=== PATIENT | female | born 1980 | race Caucasian/White ===

== ENCOUNTER → 2016-09-03 | Outpatient (CLI) | payer OTHER ==
[2016-01-12 10:16] VITALS: BP 120/55
[~2016-09-03] MED LIST: IBUP-1060 PO; LEVO175T2 PO; METO25TA2 PO; OXYC-244 PO; OXYC-250 PO
--- NOTE | 2016-09-03 10:30 | KCIC ---
PROCEDURE Pelvic sonogram. HISTORY Pain. Right oophorectomy. TECHNIQUE Trans abdominal sonographic imaging of the pelvis was performed. COMPARISON 09/18/2013 FINDINGS The uterus measures 12.0 x 8.2 x 6.0 cm. The endometrial stripe measures 10 mm in thickness. The left ovary measures 4.2 x 3.1 x 4.6 cm and demonstrates normal blood flow. There are multiple left ovarian follicles with a dominant follicular cyst measuring 1.8 cm. The right ovary is surgically absent. There is no pelvic free fluid. IMPRESSION 1. Multiple left ovarian follicles with a dominant follicular cyst measuring 1.8 cm. 2. Endometrial thickness within normal limits at 10 mm. 3. Prominent uterine size. No fibroid is seen. Electronically signed by: Vera Figueroa (Sep 03, 2016 10:29:24)
== END | disposition home or self-care (01) ==
LOC: KCIC US 07:56
PROVIDERS: ATTEND Obstetrics & Gynecology
DX: N83.02 Follicular cyst of left ovary (principal); Z90.721 Acquired absence of ovaries, unilateral
CPT/HCPCS: 76856

== ENCOUNTER 2019-09-17 07:13 | Day surgery (SDC) | payer BC, MEDICAID ==
[~2019-09-17] VITALS: Ht 171.4 cm; Wt 173.0 kg
[~2019-09-17 07:13] MED LIST changes: +BIOT25006 PO; +BUSP5TAB PO; +ESCITALOPRAM OX10 MG PO; +FLUT9.9S NS; +HYDROmorphone 2 MG/ML VIAL IV PRN; +IV RINGERS,LACTATED 1000ML 1,000 ML IV SCH; +LEVO100T5 PO; +MULT1CAP33 PO; -OXYC-244 PO; -OXYC-250 PO; +OXYC-325 PO; +OXYC1TAB19 PO; +OXYC1TAB22 PO; +PROCHLORPERAZINE 10 MG/2 ML VIAL. IV PRN; +ceFAZolin SODIUM 3 GM in IV DEXTROSE 5% 100ML 100 ML IV PRN; +fentaNYL PF VIAL 100 MCG/2 ML VIAL IV PRN
[2019-09-17] MEDS ORDERED: ESCITALOPRAM OX10 MG PO (07:47)
[2019-09-17] MEDS ORDERED: SURGICEL HEMOSTAT 4X8 EACH. ONE (07:49)
[2019-09-17] MEDS ORDERED: BUPIVACAINE-EPI 0.25%-1:200000 MPF 30 ML VIAL. ONE (07:49)
[2019-09-17] MEDS ORDERED: ENOXAPARIN 40 MG/0.4 ML SYRINGE. SQ ONE (08:00)
[2019-09-17] MEDS ORDERED: GLYCOPYRROLATE 1 MG/5 ML VIAL. ONE (08:48)
[2019-09-17] MEDS ORDERED: NEOSTIGMINE METHYLSULFATE 5 MG/5 ML SYRINGE. ONE (08:49)
[2019-09-17] MEDS ORDERED: KETOROLAC 30 MG/ML VIAL. ONE (09:15)
[2019-09-17] MEDS ORDERED: fentaNYL PF VIAL 100 MCG/2 ML VIAL ONE (09:32)
--- NOTE | 2019-09-17 09:33 | PDOC ---
BRIEF OPERATIVE NOTE Date: Sep 17, 2019 Pre-Op Diagnosis LUCA Cyst Post-Op Diagnosis [facility] Surgeon Dr. Dai Anesthesia Type: General Blood Loss 5 ml Specimens Obtained LUCA cyst wall Findings LUCA cyst 3 cm size, nml fallopian tubes patrice.; no evidence endometriosis Complications none Operative Note see dictation KHALIDA DAI Jr, MD Sep 17, 2019 09:32
--- NOTE | 2019-09-17 09:34 | DISCH ---
DISCHARGE INSTRUCTIONS Condition on Discharge Condition on Discharge: Stable Activity After Discharge Activity Instructions for Disc: Activity as tolerated Lifting Instructions after Dis: No heavy lifting Driving Instructions after Dis: Do not drive today Diet after Discharge Diet after Discharge: Regular Contacting the DRJake after DC Call your doctor for: Concerns you may have Follow-Up Follow up with: Dr. Mcpherson in 1 week KHALIDA MCPHERSON Jr, MD Sep 17, 2019 09:34
[2019-09-17] MEDS ORDERED: OXYC-325 PO (09:43)
--- NOTE | 2019-09-17 09:53 | OP ---
DATE OF SURGERY: PREOPERATIVE DIAGNOSIS: Left ovarian cyst. POSTOPERATIVE DIAGNOSIS: Left ovarian cyst. PROCEDURE: Laparoscopic left ovarian cystectomy. SURGEON: Khalida Dai MD ANESTHESIA: GETA. ESTIMATED BLOOD LOSS: 5 mL. COMPLICATIONS: None. FINDINGS: Left ovarian cyst about 3 cm size. Normal fallopian tubes bilaterally. No evidence of endometriosis. SUMMARY: This is a 38-year-old female with chronic pelvic pain and unresolving left ovarian cyst. She was counseled on risks, benefits and expectations and voiced clear understanding to proceed. DESCRIPTION OF PROCEDURE: The patient was taken to surgery suite and placed in dorsal lithotomy position. She was prepped with Betadine solution for vaginal prep and ChloraPrep for abdominal prep. After adequate anesthesia, bivalve speculum was placed vaginally. Anterior lip of the cervix grasped with a single-tooth tenaculum. Uterine acorn manipulator was then placed. The bivalve speculum was removed. Attention was now placed on abdomen. Initially, we attempted with an incision just below the umbilicus with a Veress needle to insufflate the abdomen. We attempted with a 5 mm trocar, we were unsuccessful; therefore, we made incisions in the left upper quadrant with a scalpel and a 5 mm trocar was placed. We were able to place the scope and then additional incisions were in the right lower quadrant as well as another one in the left lower quadrant in which a 5 mm trocar was placed in the right lower quadrant and 8 mm trocar placed in the left lower quadrant. With aid of Agus and Endo Christopher, the left ovarian cyst was isolated and incised. The cyst wall was removed. Both areas of the left ovarian cyst and the remaining cyst wall capsule were fulgurated with cautery. The area was hemostatic. Suction irrigation was utilized to verify good hemostasis. There was no evidence of endometriosis. A few abdominal wall adhesions were visualized and removed as well with aid of Endo Christopher and blunt dissection. The trocars were then removed under direct visualization with a pay close attention and did not cause any injury to the abdominal wall mesh that was there. All trocar sites were outside of the abdominal wall mesh area. All trocars were removed under direct visualization. The abdomen was allowed to deflate as much as possible along with mechanical manipulation. The four skin incisions were reapproximated using 4-0 Vicryl suture in a subcuticular manner. A 0.25% Marcaine with epinephrine was injected at each incision site. Uterine acorn manipulator and a single-tooth tenaculum were removed. The patient tolerated the procedure well and was taken to recovery room in stable condition. Sponge and needle count correct x 3. KHALIDA DAI MD DR: VIRGILIO/tayo JOB#: [id number] / [id number]
[2019-09-17] MEDS: MORPHINE SULFATE 2 MG/ML VIAL. IV PRN ×2 (09:57→10:17)
[2019-09-17] MEDS ORDERED: oxyCODONE/APAP 5/325 1 TAB TABLET ONE (10:10)
[2019-09-17] MEDS ORDERED: oxyCODONE/APAP 5/325 1 TAB TABLET PO ONE (10:30)
[2019-09-17 10:45] VITALS: BP 108/68
--- NOTE | 2019-09-21 18:06 | PATHOLOGY ---
[facility] Accession Number: [id number] . 01 Material submitted: . ovary - LEFT OVARIAN CYST WALL. Modifiers: left, wall . 01 Clinical history: . None provided . 02 Diagnosis: Segments of ovarian tissue, laparoscopic left ovarian cystectomy: - Follicular cyst. . ([facility]:mm; 09/18/2019) [facility] 09/21/2019 1705 Local . 02 Comment: There is no evidence of endometriosis or malignancy. . ([facility]:mm; 09/18/2019) . 02 Electronically signed: . Shimon Silverio MD, Pathologist NPI- [id number] . 01 Gross description: . The specimen is received in formalin, labeled "Eve Payton, left ovarian cyst wall". Received are multiple segments of pale sorenson fibromembranous tissue measuring 1.5 x 1.4 x 0.5 cm in aggregate dimensions. The specimen is submitted entirely in cassette A1. ([facility]; 09/17/2019) QA/[facility] 09/17/2019 1814 Local . 02 Pathologist provided ICD-10: N83.02 . 02 CPT . 387235 Specimen Comment: A courtesy copy of this report has been sent to [phone] Specimen Comment: Report sent to Performed at: 01 [facility] [address] [address], [place] [id number] MD Yves Kelley MD Phone: [phone] Performed at: 02 [facility] [address] [place], [place] [id number] MD Shimon Silverio MD Phone: [phone]
== END 2019-09-17 11:10 | disposition home or self-care (01) ==
LOC: SURG 07:13 → EEVIPCON 08:30 → SURG 11:10
PROVIDERS: ATTEND Obstetrics & Gynecology
DX: N83.02 Follicular cyst of left ovary (principal); I10 Essential (primary) hypertension; E03.9 Hypothyroidism, unspecified; A63.0 Anogenital (venereal) warts; Z90.49 Acquired absence of other specified parts of digestive tract; Z88.1 Allergy status to other antibiotic agents; Z98.890 Other specified postprocedural states; Z98.84 Bariatric surgery status; Z98.51 Tubal ligation status; Z79.2 Long term (current) use of antibiotics; Z79.899 Other long term (current) drug therapy; Z88.8 Allergy status to other drugs, medicaments and biological substances
CPT/HCPCS: 58662; 81025; A7015; J0780; J1885; J2270; J2710; J3010; J3490; J7030; J7120

== ENCOUNTER 2019-11-03 07:34 | Emergency (ER) | payer BC, MEDICAID ==
[~2019-11-03] VITALS: Ht 172.7 cm; Wt 168.6 kg
[~2019-11-03 07:34] MED LIST changes: +HYDR-3164 PO; -HYDROmorphone 2 MG/ML VIAL IV PRN; -IV RINGERS,LACTATED 1000ML 1,000 ML IV SCH; +ONDA4TAB12 PO; -PROCHLORPERAZINE 10 MG/2 ML VIAL. IV PRN; -ceFAZolin SODIUM 3 GM in IV DEXTROSE 5% 100ML 100 ML IV PRN; -fentaNYL PF VIAL 100 MCG/2 ML VIAL IV PRN
[2019-11-03 07:44] VITALS: BP 166/66
[2019-11-03] MEDS ORDERED: ORPHENADRINE CITRATE 60 MG/2 ML VIAL. IM ONE (08:00)
[2019-11-03] MEDS ORDERED: KETOROLAC 60 MG/2 ML VIAL. IM ONE (08:00)
--- NOTE | 2019-11-03 08:04 | PHYS DOC ---
Past Medical History Past Medical History: Hypothyroid Past Surgical History: Cholecystectomy, Gastric Bypass Additional Past Surgical Histo: cyst removed from l. ovary Smoking Status: Never Smoker Alcohol Use: None Adult General Chief Complaint Chief Complaint: BACK PAIN - NO INJURY HPI HPI Patient is a 39 year old female presenting to the ED with a chief complaint of lower thoracic paraspinal tenderness on the right. Patient states that it woke her up from her sleep this morning. Patient denies any obvious injuries. Patient denies pain radiating down to her buttocks. Patient denies hematuria, dysuria, urinary frequency. Patient states that the pain is worse with movement. Review of Systems Review of Systems Patient denies fever, chills, nausea, vomiting, diarrhea, dysuria, chest pain, shortness of breath. Patient does complain of right lower thoracic paraspinal tenderness. All other systems were reviewed and found to be within normal limits, except as documented in this note. Current Medications Current Medications Current Medications Medications (Trade) Dose Ordered Sig/Jolanta Start Time Stop Time Status Last Admin Dose Admin Ketorolac Tromethamine (Toradol Im) 60 mg 1X ONCE 11/03/19 08:00 11/03/19 08:01 DC 11/03/19 08:09 60 MG Orphenadrine Citrate (Norflex) 60 mg 1X ONCE 11/03/19 08:00 11/03/19 08:01 DC 11/03/19 08:08 60 MG Allergies Allergies Allergies Coded Allergies Type Severity Reaction Last Updated Verified clarithromycin Allergy Intermediate Rash 09/17/19 Yes Physical Exam Physical Exam Constitutional: Well developed, well nourished, no acute distress, non-toxic appearance. [] HENT: Normocephalic, atraumatic Eyes: PERRLA, EOMI, conjunctiva normal, no discharge. [] Neck: Normal range of motion, no tenderness, supple, no stridor. [] Lungs & Thorax: No respiratory distress Abdomen: Bowel sounds normal, soft, no tenderness Back: Lower thoracic paraspinal tenderness on the right Extremities: No tenderness, no cyanosis, no clubbing, ROM intact, no edema. [] Neurologic: Alert and oriented X 3 Current Patient Data Vital Signs Vital Signs Date Time Temp Pulse Resp B/P (MAP) Pulse Ox O2 Delivery O2 Flow Rate FiO2 11/03/19 07:44 97.6 75 20 166/66 (99) 97 Room Air 97.6 EKG EKG [] Radiology/Procedures Radiology/Procedures [] Course & Med Decision Making Course & Med Decision Making Patient has tenderness to the touch. There is no rash present. Patient does not have any symptoms dysuria, hematuria or urinary frequency. We will treat patient with Toradol 60 mg IM, Norflex 60 mg IM. Patient be discharged home for outpatient follow-up. Discussed plan of care with patient. Patient is instructed to follow up with PCP in one to 2 days. Appropriate discharge instructions given to patient to return to the ED or to seek immediate medical evaluation. Patient is instructed to return to the ED if symptoms worsen or if any concerns. Dragon Disclaimer Dragon Disclaimer This electronic medical record was generated, in whole or in part, using a voice recognition dictation system. Departure Departure Impression: Primary Impression: Strain of thoracic back region Disposition: 01 HOME, SELF-CARE Condition: IMPROVED Referrals: UNKNOWN PCP NAME (PCP) Patient Instructions: Back Pain, Adult, Thoracic Strain Scripts Hydrocodone/Apap 5-325 (NORCO 5-325 TABLET) 1 Each Tablet 1 EACH PO PRN Q6HRS PRN for PAIN, #10 as needed for pain Prov: AISSATOU RAPHAEL DO 11/03/19 Cyclobenzaprine Hcl (CYCLOBENZAPRINE HCL) 5 Mg Tablet 10 MG PO PRN TID PRN for PAIN for 5 Days, #15 TAB Prov: AISSATOU RAPHAEL DO 11/03/19 AISSATOU RAPHAEL DO Nov 03, 2019 08:03
[2019-11-03] MEDS ORDERED: HYDR-3164 PO (08:07)
[2019-11-03] MEDS ORDERED: CYCL5TAB PO (08:07)
== END 2019-11-03 08:31 | disposition home or self-care (01) ==
LOC: ER 07:34
DX: S29.012A Strain of muscle and tendon of back wall of thorax, initial encounter (principal); E03.9 Hypothyroidism, unspecified; Z90.49 Acquired absence of other specified parts of digestive tract; Z98.890 Other specified postprocedural states; Z88.1 Allergy status to other antibiotic agents; X58.XXXA Exposure to other specified factors, initial encounter; Y93.89 Activity, other specified; Y92.89 Other specified places as the place of occurrence of the external cause; Y99.8 Other external cause status
CPT/HCPCS: 96372; 99284; J1885; J2360

== ENCOUNTER 2020-06-01 21:18 | Emergency (ER) | payer BC, MEDICAID ==
[~2020-06-01] VITALS: Ht 167.6 cm; Wt 170.0 kg
[~2020-06-01 21:18] MED LIST changes: +CYCL5TAB PO
[2020-06-01 21:25] VITALS: BP 160/62
[2020-06-01 21:47] LABS: BILIRUBIN,URINE NEGATIVE (NEG); CLARITY,URINE CLEAR; COLOR,URINE YELLOW; NITRITE,URINE NEGATIVE (NEG); PROTEIN,URINE NEGATIVE (NEG-TRACE)
[2020-06-01 21:55] LABS: BACTERIA,URINE FEW /HPF (0-FEW); RBC,URINE 0 /HPF (0-2)
[2020-06-01] MEDS ORDERED: HYDR-3164 PO (22:20)
[2020-06-01] MEDS ORDERED: METH4TAB2 PO (22:20)
--- NOTE | 2020-06-01 22:22 | PHYS DOC ---
Past Medical History Past Medical History: Hypothyroid Past Surgical History: Cholecystectomy, Gastric Bypass Additional Past Surgical Histo: cyst removed from l. ovary, SPLEEN REMOVAL, HERNIA REPAIR Smoking Status: Never Smoker Alcohol Use: Occasionally General Adult EDM: Chief Complaint: BACK PAIN - NO INJURY HPI: HPI: Patient is a 39 year old female who presents with 2 days of midline cervical and thoracic spinal pain that is more painful with movement and moving her arms and lifting objects. She states it is more painful with walking also. She does not remember injuring or pulling a muscle in her back. She states that she took a tizanidine and it did not help. Patient states when she bends over to lift any objects or lift there 25 pound dog it was very painful. Patient states that at times she can feel the pain that is sharp and shooting down into her bilateral hands. She currently rates her pain 7 out of 10 with movement. P atient denies numbness or tingling, injury, loss of bowel or bladder, shortness of breath, chest pain, fever, headache, dizziness, neck stiffness, abdominal pain, nausea, vomiting, diarrhea or dysuria symptoms. Patient has a history of gastric bypass, cholecystectomy, spleen removal, hernia repair, hypothyroidism. Review of Systems: Review of Systems: Constitutional: Denies fever or chills. [] Eyes: Denies change in visual acuity. [] HENT: Denies nasal congestion or sore throat. [] Respiratory: Denies cough or shortness of breath. [] Cardiovascular: Denies chest pain or edema. [] GI: Denies abdominal pain, nausea, vomiting, bloody stools or diarrhea. [] : Denies dysuria. [] Musculoskeletal: + back pain or denies joint pain. [] Integument: Denies rash. [] Neurologic: Denies headache, focal weakness or sensory changes. +Sharp shooting nerve pains to bilateral arms and hands [] Endocrine: Denies polyuria or polydipsia. [] Lymphatic: Denies swollen glands. [] Psychiatric: Denies depression or anxiety. [] Heart Score: Risk Factors: Risk Factors: DM, Current or recent (<one month) smoker, HTN, HLP, family history of CAD, obesity. Risk Scores: Score 0 - 3: 2.5% MACE over next 6 weeks - Discharge Home Score 4 - 6: 20.3% MACE over next 6 weeks - Admit for Clinical Observation Score 7 - 10: 72.7% MACE over next 6 weeks - Early Invasive Strategies Allergies: Allergies: Allergies Coded Allergies Type Severity Reaction Last Updated Verified clarithromycin Allergy Intermediate Rash 09/17/19 Yes Physical Exam: PE: Constitutional: Well developed, well nourished, no acute distress, non-toxic appearance. [] HENT: Normocephalic, atraumatic, bilateral external ears normal, oropharynx moist, no oral exudates, nose normal. [] Eyes: PERRLA, EOMI, conjunctiva normal, no discharge. [] Neck: Normal range of motion, no tenderness, supple, no stridor. [] Cardiovascular:Heart rate regular rhythm, no murmur [] Lungs & Thorax: Bilateral breath sounds clear to auscultation [] Abdomen: Bowel sounds normal, soft, no tenderness, no masses, no pulsatile masses. [] Skin: Warm, dry, no erythema, no rash. [] Back: No tenderness, no CVA tenderness. [] Extremities: No tenderness, no cyanosis, no clubbing, ROM intact, no edema. [] Neurologic: Alert and oriented X 3, normal motor function, normal sensory function, no focal deficits noted. [] Psychologic: Affect normal, judgement normal, mood normal. [] Normal physical exam Current Patient Data: Labs: Laboratory Tests Test 06/01/20 21:30 06/01/20 21:54 Urine Collection Type Unknown Urine Color Yellow Urine Clarity Clear Urine pH 6.0 (<5.0-8.0) Urine Specific Norman 1.020 (1.000-1.030) Urine Protein Negative mg/dL (NEG-TRACE) Urine Glucose (UA) Negative mg/dL (NEG) Urine Ketones (Stick) Negative mg/dL (NEG) Urine Blood Negative (NEG) Urine Nitrite Negative (NEG) Urine Bilirubin Negative (NEG) Urine Urobilinogen Dipstick 1.0 mg/dL (0.2 mg/dL) Urine Leukocyte Esterase Negative (NEG) Urine RBC 0 /HPF (0-2) Urine WBC 1-4 /HPF (0-4) Urine Squamous Epithelial Cells Mod /LPF Urine Bacteria Few /HPF (0-FEW) Urine Mucus Mod /LPF POC Urine HCG, Qualitative Hcg negative (Negative) Vital Signs: Vital Signs Date Time Temp Pulse Resp B/P (MAP) Pulse Ox O2 Delivery O2 Flow Rate FiO2 06/01/20 21:25 97.7 88 17 160/62 (94) 99 Room Air 97.7 EKG: EKG: [] Radiology/Procedures: Radiology/Procedures: [] Impression: [facility] [address] [place] [address] IMAGING REPORT Signed PATIENT: KHADRA MCRAE ACCOUNT: [id number] : 1980 LOCATION: ER AGE: 39 SEX: F EXAM STATUS: REG ER ORD. PHYSICIAN: АЛЕКСАНДР WALSH APRN REASON: pain mostly around T-5 and T-7, no injury PROCEDURE: THORACIC SPINE 3V Exam: Cervical spine 5 views. Thoracic spine 3 views INDICATION: Pain around T5 and T7 TECHNIQUE: Frontal, lateral, odontoid and bilateral oblique views of the cervical spine. Frontal, lateral and swimmer's views of the thoracic spine Comparisons: None FINDINGS: Cervical spine: There is straightening of cervical spine which may be positional. Vertebral body heights are well-maintained. No significant osteophytic foraminal stenosis identified in the cervical spine. Minimal degenerative disc disease greatest at C4-C5. Visual is paraspinal soft tissues are unremarkable. Thoracic spine: Vertebral body heights and alignment are well-maintained. No significant spondylotic change in the thoracic spine. Visualized paraspinal soft tissues are unremarkable. IMPRESSION: 1. Minimal spondylotic change in cervical spine. 2. Unremarkable thoracic spine radiographs. Electronically signed by: Liza Bean MD (06/01/2020 10:43 PM) [facility] DICTATED and SIGNED BY: LIZA BEAN MD DATE: 06/01/20 9439 Course & Med Decision Making: Course & Med Decision Making Pertinent Labs and Imaging studies reviewed. (See chart for details) See HPI. Urinalysis shows no infection. is negative. There is no focal bony spinal tenderness with palpation. Pain is with movement. Skin pink warm and dry. There are no deformities seen or felt with palpation to the spine. Full range of motion of her neck. There is no bruising or abrasions to her back. No CVA tenderness. I discussed possibly switching her muscle relaxer to Norflex and patient states she will try this. I will give her a prescription for Norflex, hydrocodone, Medrol Dosepak. Patient is likely having nerve pain and has strained her muscle in her back. [] Mariel Disclaimer: Mariel Disclaimer: This electronic medical record was generated, in whole or in part, using a voice recognition dictation system. Departure Departure Impression: Primary Impression: Back pain Qualified Codes: M54.9 - Dorsalgia, unspecified Additional Impression: DJD (degenerative joint disease) of cervical spine Qualified Codes: M47.812 - Spondylosis without myelopathy or radiculopathy, cervical region Disposition: HOME SELF CARE/HOMELESS Condition: STABLE Referrals: NO PCP (PCP) Patient Instructions: Cervical Radiculopathy, [id number], Degenerative Disk Disease, Muscle Strain Additional Instructions: Follow up with primary care provider as soon as possible. Take medications as prescribed and with food. Try using a heating pad. Scripts Orphenadrine Citrate (ORPHENADRINE CITRATE) 100 Mg Tablet.er 1 TAB PO BID, #14 TAB Prov: АЛЕКСАНДР WALSH APRN 06/01/20 Hydrocodone/Apap 5-325 (NORCO 5-325 TABLET) 1 Each Tablet 1 TAB PO PRN Q6HRS PRN for PAIN, #10 TAB 0 Refills Prov: АЛЕКСАНДР WALSH APRN 06/01/20 Methylprednisolone (MEDROL) 4 Mg Tab.ds.pk 1 PKG PO UD, #1 PKG Prov: АЛЕКСАНДР WALSH APRN 06/01/20 АЛЕКСАНДР WALSH APRN Jun 01, 2020 22:22
--- NOTE | 2020-06-01 22:46 | RAD ---
Exam: Cervical spine 5 views. Thoracic spine 3 views INDICATION: Pain around T5 and T7 TECHNIQUE: Frontal, lateral, odontoid and bilateral oblique views of the cervical spine. Frontal, lateral and swimmer's views of the thoracic spine Comparisons: None FINDINGS: Cervical spine: There is straightening of cervical spine which may be positional. Vertebral body heights are well-maintained. No significant osteophytic foraminal stenosis identified in the cervical spine. Minimal degenerative disc disease greatest at C4-C5. Visual is paraspinal soft tissues are unremarkable. Thoracic spine: Vertebral body heights and alignment are well-maintained. No significant spondylotic change in the thoracic spine. Visualized paraspinal soft tissues are unremarkable. IMPRESSION: 1. Minimal spondylotic change in cervical spine. 2. Unremarkable thoracic spine radiographs. Electronically signed by: Liza Hair MD (06/01/2020 10:43 PM) [facility]
[2020-06-01] MEDS ORDERED: ORPH100T PO (22:50)
== END 2020-06-01 23:00 | disposition home or self-care (01) ==
LOC: ER 21:18
DX: M54.6 Pain in thoracic spine (principal); M47.812 Spondylosis without myelopathy or radiculopathy, cervical region; M79.601 Pain in right arm; M79.602 Pain in left arm; E03.9 Hypothyroidism, unspecified; Z90.49 Acquired absence of other specified parts of digestive tract; Z98.890 Other specified postprocedural states; Z88.1 Allergy status to other antibiotic agents
CPT/HCPCS: 72050; 72072; 81001; 81025; 99284

== ENCOUNTER 2020-10-01 20:25 | Emergency (ER) | payer BC, MEDICAID ==
[~2020-10-01] VITALS: Ht 170.2 cm; Wt 176.0 kg
[~2020-10-01 20:25] MED LIST changes: +METH4TAB2 PO; +ORPH100T PO
[2020-10-01 20:57] LABS: U PREG PATIENT NEGATIVE (NEG)
[2020-10-01 21:53] LABS: BASO % 0 % (0-3); EOS # 0.3 x10^3/uL (0.0-0.7); EOS % 3 % (0-3); HEMATOCRIT 36.4 % (36.0-47.0); LYMPH # 3.3 x10^3/uL (1.0-4.8); LYMPH % 35 % (24-48); MEAN CORPUSCULAR HEMOGLOBIN 28 pg (25-35); MEAN CORPUSCULAR HGB CONC 33 g/dL (31-37); MEAN CORPUSCULAR VOLUME 86 fL (79-100); MONO # 0.7 x10^3/uL (0.0-1.1); MONO % 8 % (0-9); NEUT # 5.2 x10^3/uL (1.8-7.7); NEUT % 54 % (31-73); PLATELET COUNT 213 x10^3/uL (140-400); RED BLOOD COUNT 4.25 x10^6/uL (3.50-5.40); RED CELL DISTRIBUTION WIDTH 14.4 % (11.5-14.5); WHITE BLOOD COUNT 9.6 x10^3/uL (4.0-11.0)
[2020-10-01 22:04] LABS: CLARITY,URINE BLOODY; COLOR,URINE RED
[2020-10-01 22:05] LABS: RBC,URINE TNTC /HPF (0-2)
[2020-10-01 22:07] LABS: BACTERIA,URINE 0 /HPF (0-FEW)
[2020-10-01] MEDS ORDERED: IV NORMAL SALINE 1000ML BAG 1,000 ML IV ONE (23:30)
--- NOTE | 2020-10-01 23:56 | ED.ADGEN ---
Past Medical History Past Medical History: Hypothyroid Past Surgical History: Cholecystectomy, Gastric Bypass Additional Past Surgical Histo: cyst removed from l. ovary, SPLEEN REMOVAL, HERNIA REPAIR Smoking Status: Never Smoker Alcohol Use: Occasionally General Adult EDM: Chief Complaint: VAGINAL BLEEDING HPI: HPI: Patient is a 39 year old female who presents emergency department with complain ts of heavy vaginal bleeding. Patient reports that her last menstrual cycle was on September 05, 2019. She began to have heavy vaginal bleeding today at approximately 1500. Patient states she also has some lower abdominal cramping. She denies any irregular vaginal discharge or odor prior to the onset of the bleeding. Patient states that her menstrual cycle at the beginning of September was also heavier than normal. Patient reports that she has saturated more than 3 pads and a super tampon since the onset of the bleeding. Patient reports that she feels a little lightheaded but denies any syncope or dizziness. She denies any recent fever, cough, headache, chest pain, shortness of breath, nausea, vomiting, diarrhea, dysuria, or hematuria. She currently complains of lower abdominal cramping that she rates a 7 out of 10 on pain scale. She denies any alleviating or exacerbating factors. Patient states that her only medical problems are hypothyroidism and obesity. She reports previous surgical history of a gastric bypass, right oophorectomy, hernia repair, cholecystectomy, tonsillectomy, adenectomy, and splenectomy. Review of Systems: Review of Systems: Complete ROS is negative unless otherwise noted in HPI. Current Medications: Current Medications Medications (Trade) Dose Ordered Sig/Jolanta Start Time Stop Time Status Last Admin Dose Admin Sodium Chloride 1,000 ml @ 1,000 mls/hr 1X ONCE 10/01/20 23:30 10/02/20 00:29 10/01/20 23:22 1,000 MLS/HR Allergies: Allergies: Allergies Coded Allergies Type Severity Reaction Last Updated Verified clarithromycin Allergy Intermediate Rash 09/17/19 Yes Physical Exam: PE: Constitutional: Well developed, well nourished, no acute distress, non-toxic appearance, morbidly obese. HENT: Normocephalic, atraumatic, bilateral external ears normal, nose normal. Eyes: PERRLA, EOMI, conjunctiva normal, no discharge. Neck: Normal range of motion, no stridor. Cardiovascular: Heart rate regular rhythm Lungs & Thorax: Respirations even and unlabored, no retractions, no respiratory distress Pelvic Exam: [employer] Sales Manager present Elisa PRIEST Abdomen: Nontender, soft External Genitalia: Normal Skin Speculum: Normal vaginal mucosa, bloody cervical discharge Bimanual: No adnexal masses or tenderness, No CMT Skin: Warm, dry, no erythema, no rash. Extremities: No cyanosis, ROM intact, no edema. Neurologic: Alert and oriented X 3, no focal deficits noted. Psychologic: Affect normal, judgement normal, mood normal. Current Patient Data: Labs: Laboratory Tests Test 10/01/20 20:40 10/01/20 21:35 Urine Collection Type Unknown Urine Color Red Urine Clarity Bloody Urine pH (<5.0-8.0) Urine Specific [place] (1.000-1.030) Urine Protein mg/dL (NEG-TRACE) Urine Glucose (UA) mg/dL (NEG) Urine Ketones (Stick) mg/dL (NEG) Urine Blood (NEG) Urine Nitrite (NEG) Urine Bilirubin (NEG) Urine Urobilinogen Dipstick mg/dL (0.2 mg/dL) Urine Leukocyte Esterase (NEG) Urine RBC Tntc /HPF (0-2) Urine WBC 1-4 /HPF (0-4) Urine Squamous Epithelial Cells Few /LPF Urine Bacteria 0 /HPF (0-FEW) Urine Mucus Mod /LPF Urine Test Negative (NEG) White Blood Count 9.6 x10^3/uL (4.0-11.0) Red Blood Count 4.25 x10^6/uL (3.50-5.40) Hemoglobin 12.0 g/dL (12.0-15.5) Hematocrit 36.4 % (36.0-47.0) Mean Corpuscular Volume 86 fL (79-100) Mean Corpuscular Hemoglobin 28 pg (25-35) Mean Corpuscular Hemoglobin Concent 33 g/dL (31-37) Red Cell Distribution Width 14.4 % (11.5-14.5) Platelet Count 213 x10^3/uL (140-400) Neutrophils (%) (Auto) 54 % (31-73) Lymphocytes (%) (Auto) 35 % (24-48) Monocytes (%) (Auto) 8 % (0-9) Eosinophils (%) (Auto) 3 % (0-3) Basophils (%) (Auto) 0 % (0-3) Neutrophils # (Auto) 5.2 x10^3/uL (1.8-7.7) Lymphocytes # (Auto) 3.3 x10^3/uL (1.0-4.8) Monocytes # (Auto) 0.7 x10^3/uL (0.0-1.1) Eosinophils # (Auto) 0.3 x10^3/uL (0.0-0.7) Basophils # (Auto) 0.0 x10^3/uL (0.0-0.2) Laboratory Tests 10/01/20 21:35 Vital Signs: Vital Signs Date Time Temp Pulse Resp B/P (MAP) Pulse Ox O2 Delivery O2 Flow Rate FiO2 10/01/20 20:30 97.2 96 13 154/67 (96) 100 Room Air 97.2 EKG: EKG: [] Heart Score: Risk Factors: Risk Factors: DM, Current or recent (<one month) smoker, HTN, HLP, family history of CAD, obesity. Risk Scores: Score 0 - 3: 2.5% MACE over next 6 weeks - Discharge Home Score 4 - 6: 20.3% MACE over next 6 weeks - Admit for Clinical Observation Score 7 - 10: 72.7% MACE over next 6 weeks - Early Invasive Strategies Radiology/Procedures: Radiology/Procedures: [] Course & Med Decision Making: Course & Med Decision Making Pertinent Labs and Imaging studies reviewed. (See chart for details) Patient is a 39-year-old female who presents emergency department with concerns of heavy vaginal bleeding, and pelvic cramping since 1500 this afternoon. Pelvic exam did not reveal any excessive vaginal bleeding, there were no clots in the vaginal vault, bimanual exam was benign. CBC revealed a normal hemoglobin and hematocrit. Orthostatic blood pressures were within normal limits. Patient was given a liter of normal saline in the emergency department. She reported feeling better after these interventions. Patient was encouraged to take Tylenol as needed for pain as she has not able to take NSAIDs due to previous gastric bypass. I encouraged patient to follow-up with her TYPESETTER APPRENTICE this week to discuss heavier menstrual cycles. Encouraged her to return to the emergency room if she begins to saturate more than 1 pad an hour or develops worsening symptoms such as fever or syncope. Patient verbalized an understanding of home care, medications, follow-up, and return to ED instructions and was in agreement with the plan of care. [] Dragon Disclaimer: Dragon Disclaimer: This electronic medical record was generated, in whole or in part, using a voice recognition dictation system. Departure Departure Impression: Primary Impression: Heavy menstrual period Disposition: 01 DC HOME SELF CARE/HOMELESS Condition: STABLE Referrals: UNKNOWN PCP NAME (PCP) CAMPBELL MELVIN MD Patient Instructions: Dysmenorrhea, [id number] Additional Instructions: Follow-up with your TYPESETTER APPRENTICE this week. Return to the emergency room if you begin saturating more than 1 pad an hour or you developing worsening symptoms such as increased pain, dizziness, or fever. Problem Qualifiers Primary Impression: Heavy menstrual period Menorrhagia type: with regular cycle Qualified Codes: N92.0 - Excessive and frequent menstruation with regular cycle TIM CAPMO APRN Oct 01, 2020 23:56
[2020-10-02 00:22] VITALS: BP 124/62
== END 2020-10-02 00:45 | disposition home or self-care (01) ==
LOC: ER 20:25
DX: N92.0 Excessive and frequent menstruation with regular cycle (principal); R10.30 Lower abdominal pain, unspecified; R42 Dizziness and giddiness; E03.9 Hypothyroidism, unspecified; Z95.1 Presence of aortocoronary bypass graft; Z90.49 Acquired absence of other specified parts of digestive tract; E66.9 Obesity, unspecified; Z68.44 Body mass index [BMI] 60.0-69.9, adult; Z88.1 Allergy status to other antibiotic agents
CPT/HCPCS: 36415; 81001; 81025; 85025; 96360; 99285; J7030